=== PATIENT | female | born 1970 | race Asian ===

== ENCOUNTER 2017-11-21 07:18 | Day surgery (SDC) | payer OTHER ==
[~2017-11-21] VITALS: Ht 170.2 cm; Wt 62.6 kg
[~2017-11-21 07:18] MED LIST: CEFAZOLIN SOD 1 GM/ ISO 50 ML PREMIX IV ONE
[2017-11-21] MEDS ORDERED: fentaNYL CITRATE/PF 100 MCG/2 ML AMP ONE (09:09)
[2017-11-21] MEDS ORDERED: MIDAZOLAM HCL 5 MG/5 ML VIAL IVP ONE (10:00)
[2017-11-21] MEDS ORDERED: HEPARIN SODIUM,PORCINE 5000 UNITS/ML VIAL SUBCUT ONE (10:00)
[2017-11-21] MEDS ORDERED: SEVOFLURANE 15 MIN GAS INH ONE (10:00)
[2017-11-21] MEDS ORDERED: D10W 1,000 ML IV SCH (10:00)
[2017-11-21] MEDS ORDERED: NS 500 ML BAG IV ONE (10:00)
[2017-11-21] MEDS ORDERED: BUPIVACAINE /PF 0.5% 30 ML VIAL INJ ONE (10:00)
[2017-11-21] MEDS ORDERED: PROPOFOL 200MG/ 20ML VIAL (DIPRIVAN) IV ONE ×2 (10:00)
[2017-11-21] MEDS ORDERED: fentaNYL CITRATE/PF 100 MCG/2 ML AMP IVP ONE ×2 (10:00)
[2017-11-21] MEDS ORDERED: LR 1,000 ML IV.SOLN IV ONE (10:00)
[2017-11-21] MEDS ORDERED: hydrALAZINE HCL 20 MG/ML VIAL IVP ONE (10:00)
[2017-11-21] MEDS ORDERED: IOHEXOL 50 ML IV ONE (10:48)
[2017-11-21] MEDS ORDERED: ONDANSETRON HCL 4 MG/2 ML VIAL IVP PRN (11:00)
[2017-11-21] MEDS ORDERED: fentaNYL CITRATE/PF 100 MCG/2 ML AMP IVP PRN ×2 (11:00)
[2017-11-21] MEDS ORDERED: D5/0.45 NS 1,000 ML IV SCH (11:16)
[2017-11-21] MEDS ORDERED: HYDROcodone/ACETAMIN 5-325 MG TAB (NORCO/ VICODIN) PO PRN ×2 (11:30)
[2017-11-21] MEDS ORDERED: HYDROmorphone 1 MG INJ. 1 MG/ML AMPUL IVP PRN (11:30)
[2017-11-21 12:25] VITALS: BP_SYST 169
[2017-11-21] MEDS ORDERED: HYDROcodone/ACETAMIN 5-325 MG TAB (NORCO/ VICODIN) ONE (13:30)
== END 2017-11-21 14:35 | disposition home or self-care (01) ==
LOC: SMU 07:18 → SDS 07:18
PROVIDERS: ATTEND Colon & Rectal Surgery
DX: Z45.2 Encounter for adjustment and management of vascular access device (principal); C55 Malignant neoplasm of uterus, part unspecified; E78.5 Hyperlipidemia, unspecified; E11.3299 Type 2 diabetes mellitus with mild nonproliferative diabetic retinopathy without macular edema, unspecified eye; N39.0 Urinary tract infection, site not specified; Z79.899 Other long term (current) drug therapy; Z88.8 Allergy status to other drugs, medicaments and biological substances; Z90.710 Acquired absence of both cervix and uterus
CPT/HCPCS: 36561; 71045; 76000; C1769; C1788; J0360; J0690; J1644; J2250; J2704; J3010; J3490; J7040; J7120; Q9967